=== PATIENT | female | born 1965 | race Two or more races ===

== ENCOUNTER 2021-02-26 05:45 | Day surgery (SDC) | payer OTHER ==
[~2021-02-26 05:45] MED LIST: OMEGA PO; PROBIOTIC1 EAC2 PO; PROTANDIM; [UNRECOGNIZED DRUG - OTHER] PO; [UNRECOGNIZED DRUG - OTHER] PO
== END 2021-02-26 14:45 | disposition home or self-care (01) ==
LOC: CIR.AMB 05:45
PROVIDERS: ATTEND Obstetrics & Gynecology
DX: N84.0 Polyp of corpus uteri (principal); Z20.822 Contact with and (suspected) exposure to COVID-19